=== PATIENT | female | born 1965 | race Caucasian/White ===

== ENCOUNTER → 2024-03-29 16:52 | Outpatient (REF) | payer BC, SELFPAY | LOC: HWWDC 16:52 | PROVIDERS: ATTENDING PHYSICIAN Obstetrics & Gynecology; FAMILY PHYSICIAN Internal Medicine | DX: Z12.31 Encounter for screening mammogram for malignant neoplasm of breast (principal) | CPT/HCPCS: 77063; 77067 ==

== ENCOUNTER → 2024-09-04 12:35 | Day surgery (SDC) | payer BC, SELFPAY ==
[2024-09-04] VITALS (10 sets, daily range): BP systolic 13–182; BP diastolic 72–102; BMI 19.9
--- NOTE | 2024-09-04 11:45 | ED.GENMED ---
History of Present Illness
General
Chief Complaint: Headache
Source: patient and spouse
Exam Limitations: none
Time Seen by Provider: 09/04/24 11:10
History of Present Illness
History of Present Illness:
This is 58-year-old female presents with a headache. She had a myelogram this past . She states she has had persistent headaches. Her procedure was done at [place]. Headache is clearly worse when she sits up or stands up. She has tried
caffeine, Tylenol, ibuprofen. She called interventional radiology advised her to come for evaluation. Patient denies fevers. No neck stiffness. No rash. She had a myelogram because of lower extremity numbness. She reports this has been ongoing
and she has had workup for this including MRI. Spouse adds that she has had headaches since her procedure
Past History
Past History
ED Past Medical History: Other (Lower extremity numbness)
Phy Exam
Physical Exam
Physical Exam:
CONSTITUTIONAL Patient alert and oriented to person, place and time. Well-appearing. Vital signs reviewed.
HEAD atraumatic, normocephalic.
EYES eyelids normal to inspection, Extraocular muscles intact, Conjunctiva normal, Sclera normal.
NECK normal range of motion, Trachea midline, no jugular venous distention. No meningismus
RESPIRATORY CHEST No respiratory distress noted, Chest expansion equal,
ABDOMEN abdomen nontender, Bowel sounds normal. No distention.
BACK normal inspection, no obvious deformities
UPPER EXTREMITY range of motion normal, Motor strength normal, no cyanosis, no edema.
LOWER EXTREMITY range of motion normal, Motor strength normal, no cyanosis, no edema.
NEURO Speech normal, No focal motor deficits, Jodi coma scale 15, Memory normal, Cranial Nerves intact to screening exam.
SKIN skin warm, dry, and normal in color.
Course
Vital Signs
Initial and Last Documented VS:
Initial Vital Signs
Temp Pulse Resp BP Pulse Ox
97.8 F 70 16 182/102 98
09/04/24 10:02 09/04/24 10:02 09/04/24 10:02 09/04/24 10:02 09/04/24 10:02
Last Documented Vital Signs
Temp Pulse Resp BP Pulse Ox
97.6 F 65 17 134/98 96
09/04/24 14:30 09/04/24 14:30 09/04/24 14:30 09/04/24 14:30 09/04/24 14:30
MDM/Problems Addressed
Differential Diagnosis Includes:
Acute spinal headache, meningitis
MDM/Problems Addressed:
Acute spinal headache
*Pulse Oximetry
Patient hypoxic: no
*Critical Care Note
Total Time (30-74mins, 75-104mins- exclusive of procedures): Not Applicable
Data Reviewed
Source: patient and spouse
Further Testing Considered But Not Given:
Consider CT but nonfocal exam symptoms are clearly positional
Patient Management
Discussion with other providers: Field Care Coordinator (Case discussed with anesthesia)
Escalation/DeEscalation of care consider admission/obs:
Anesthesia to place blood patch. Patient otherwise appears well. No signs of infection
ED Attending Note
-
Portions of this chart may have been created with voice recognition software.� Occasional wrong word or��sound alike� substitutions may have occurred due to the inherent limitations of voice recognition software.
Discharge Plan
Departure
Patient Disposition: OR
Date of Disposition: 09/04/24
Time of Disposition: 12:02
Presentation/result/management discussed w/ accepting MD/DO: anesthesia
Discharge Problem:
Spinal headache
Interventions
Interventions:
*General Assessment Last Done: 09/04/24 10:02
*Neglect/Abuse Screening Last Done: 09/04/24 10:02
ED- Fall Risk Assessment Last Done: 09/04/24 11:43
*ED COVID-19 Vaccine History Last Done: 09/04/24 11:24
*Nursing Disposition Last Done: 09/04/24 12:29
ED- Neurological Assessment Last Done: 09/04/24 11:20
Discharge Date and Time
Discharge Date/Time: 09/04/24 12:29
== END ==
LOC: EMR 10:00 → SDS 12:35
PROVIDERS: ATTENDING PHYSICIAN Emergency Medicine; FAMILY PHYSICIAN Internal Medicine
DX: G97.1 Other reaction to spinal and lumbar puncture (principal); Y83.8 Other surgical procedures as the cause of abnormal reaction of the patient, or of later complication, without mention of misadventure at the time of the procedure
CPT/HCPCS: 62273; 99285